=== PATIENT | male | born 1940 | race Caucasian/White ===

== ENCOUNTER → 2024-01-19 | Outpatient (CLI) | payer OTHER ==
[~2024-01-19] VITALS: Ht 185.4 cm; Wt 83.9 kg
[2024-01-19 10:06] VITALS: PULSE 62; RESP 14; O2SAT 95
[2024-01-19] MEDS: albuterol 2.5 MG/3 ML nebule NEB ONE (10:13)
== END | disposition home or self-care (01) ==
LOC: RT 08:42
PROVIDERS: ATTEND Internal Medicine
DX: J44.9 Chronic obstructive pulmonary disease, unspecified (principal); J47.9 Bronchiectasis, uncomplicated; J84.10 Pulmonary fibrosis, unspecified
CPT/HCPCS: 94060; 94727; 94729; 94760

== ENCOUNTER 2025-05-17 08:01 | Outpatient (CLI) | payer OTHER ==
[~2025-05-17] VITALS: Ht 185.4 cm; Wt 94.1 kg
[2025-05-17] MEDS ORDERED: aminophylline 250mg/10ml inj. IV ONE (09:30)
[2025-05-17 09:32] VITALS: BP 178/68; PULSE 60; RESP 20; O2SAT 98
[2025-05-17] MEDS: regadenoson 0.4mg/5ml syringe IV ONE (09:46)
[2025-05-17 09:47] VITALS: BP 176/76; PULSE 85; RESP 20; O2SAT 97
[2025-05-17 09:48] VITALS: BP 165/84; PULSE 99; RESP 20; O2SAT 97
[2025-05-17 09:49] VITALS: BP 184/78; PULSE 89; RESP 20; O2SAT 97
[2025-05-17 09:50] VITALS: BP 183/82; PULSE 79; RESP 20; O2SAT 99
[2025-05-17 09:51] VITALS: BP_SYST 170; BP_SYST 174; BP_DIAS 64; BP_DIAS 71; PULSE 72; PULSE 77; RESP 20; O2SAT 98
--- NOTE | 2025-05-17 11:50 | RADIOLOGY REPORT ---
Reason for study/Clinical History: CAD Comparison Study: None Myocardial Perfusion Study with SPECT Technique: The patient received an intravenous injection of 7.8 mCi of technetium-99m Sestamibi while at rest. After a short delay, SPECT tomographic images of the heart were obtained. The patient then went to the stress lab where they received an intravenous Lexiscan utilizing standard protocol. 35.3 mCi of technetium-99m Sestamibi was injected intravenously immediately after the start of the infusion. Gated SPECT tomographic images of the heart were acquired and processed. Findings: Rotating planar images show no significant attenuation artifact. Subtle fixed defect is present at the apex and inferior wall. The left ventricular ejection fraction is 56%. (normal greater than 50%) Impression: Subtle fixed defects are present in the apex and inferior wall. These may represent artifact versus chronic infarcted tissue. No reversible findings are present to suggest acute ischemia.
== END 2025-05-17 23:59 | disposition home or self-care (01) ==
LOC: RAD 08:01
PROVIDERS: ATTEND Internal Medicine Interventional Cardiology
DX: I25.810 Atherosclerosis of coronary artery bypass graft(s) without angina pectoris (principal)
CPT/HCPCS: 78452; 93017; A9500; J2785; J0280